=== PATIENT | male | born 1995 | race Two or more races ===

== ENCOUNTER 2022-12-30 14:42 | Emergency (ER) | payer SELFPAY ==
[~2022-12-30] VITALS: Ht 185.4 cm; Wt 98.0 kg
[2022-12-30 14:45] VITALS: BP 130/70
[2022-12-30 15:55] LABS: Hemoglobin 16.2 g/dL (13.5-17.5); Mean Corpuscular Hemoglobin 29.6 pg (28.0-32.0); Mean Corpuscular Hgb Conc. 33.7 g/dL (32.0-36.0); Mean Corpuscular Volume 87.8 fL (80.0-100.0); Red Blood Cells 5.46 10^6/uL (4.5-5.90); White Blood Cell 4.1 10^3/uL (4.4-10.8)
[2022-12-30 16:00] LABS: Basophils % (manual) 0 (0.0-2.0); Blast Cells 0; Metamyelocytes % 0; Myelocytes % 0; Promyelocytes % 0; Reactive Lymphocytes 0
[2022-12-30 16:10] LABS: Albumin 4.2 g/dL (3.4-5.0); Calcium 9.4 mg/dL (8.5-10.1); Potassium 4.4 mmol/L (3.5-5.1)
[2022-12-30 16:13] LABS: BUN/Creatinine Ratio 12.7 (10.0-20.0); Bilirubin, Total 0.6 mg/dL (0.2-1.0); Total Protein 7.6 g/dL (6.4-8.2)
[2022-12-30 16:18] LABS: Band Neutrophils % (manual) 2; Lymphocytes % (manual) 20 (10.0-50.0); Monocytes % (manual) 18 (0-12)
[2022-12-30 16:19] LABS: Eosinophils % (manual) 1 (0-7)
[2022-12-30] MEDS ORDERED: HYDROcodone-ACET 5/325MG TAB PO ONE (16:45)
[2022-12-30] MEDS ORDERED: IBU600T PO (17:37)
[2022-12-30] MEDS ORDERED: BACL10TA PO (17:37)
== END 2022-12-30 18:00 | disposition home or self-care (01) ==
LOC: ER 14:42
DX: R07.89 Other chest pain (principal)
CPT/HCPCS: 36415; 71045; 71111; 80053; 84484; 85007; 85027